=== PATIENT | female | born 1970 ===

== ENCOUNTER 2018-05-02 11:31 | Emergency (ER) | payer SELFPAY ==
--- NOTE | 2018-05-02 11:54 | ED PDOC ---
HPI: Abdomen Time Seen by Provider: 05/02/18 11:43 Chief Complaint (Nursing): Abdominal Pain Onset/Duration Of Symptoms: Days (3) Current Symptoms Are (Timing): Still Present Severity: Moderate Pain Scale Rating Of: 3 Location Of Pain/Discomfort: RLQ, LLQ Quality Of Discomfort: Cramping Associated Symptoms: Urinary Symptoms. denies: Fever, Nausea, Vomiting, Diarrhea Exacerbating Factors: None Alleviating Factors: None Additional Complaint(s): Lower abd pain, crampy x 3 days. Denies NVD. No fever. C/o dysuria. No back pain Abnormal Vaginal Bleeding: No Past Medical History Vital Signs: Last Vital Signs Temp 98.1 F 05/02/18 11:36 Pulse 72 05/02/18 11:36 Resp 16 05/02/18 11:36 BP 106/63 05/02/18 11:36 Pulse Ox 97 05/02/18 11:58 - Medical History PMH: No Chronic Diseases - Family History Family History: States: Unknown Family Hx - Home Medications Home Medications: Ambulatory Orders Medication Instructions Recorded Naproxen [Naprosyn] 500 mg PO Q12H #20 tab 05/02/18 - Allergies Allergies/Adverse Reactions: Allergies Allergy/AdvReac Type Severity Reaction Status Date / Time No Known Allergies Allergy Verified 05/02/18 11:51 Review of Systems Constitutional: Negative for: Fever Gastrointestinal: Positive for: Abdominal Pain. Negative for: Nausea, Vomiting , Diarrhea Genitourinary Female: Positive for: Dysuria Musculoskeletal: Negative for: Back Pain Physical Exam - Physical Exam Appears: Positive for: Non-toxic, No Acute Distress Gastrointestinal/Abdominal: Positive for: Bowel Sounds, Soft, Tenderness (Lower quads bilat) Back: Negative for: L CVA Tenderness, R CVA Tenderness - Laboratory Results Result Diagrams: 05/02/18 12:20 05/02/18 12:20 - ECG O2 Sat by Pulse Oximetry: 97 Disposition - Clinical Impression Clinical Impression: Uterine fibroid - Patient ED Disposition Is Patient to be Admitted: No Counseled Patient/Family Regarding: Studies Performed, Diagnosis, Need For Followup, Rx Given - Disposition Referrals: [facility] [Outside] Disposition: Routine/Home Disposition Time: 15:26 Condition: FAIR Prescriptions: Naproxen [Naprosyn] 500 mg PO Q12H #20 tab Instructions: Uterine Fibroids Forms: Osen (Kyrgyz)
[2018-05-02 12:35] LABS: BASO # 0.1 K/uL (0.0-0.2); BASO % 0.9 % (0.0-2.0); EOS # 0.4 K/uL (0.0-0.7); EOS % 5.5 % (0.0-4.0); HEMOGLOBIN 10.2 g/dL (12.0-16.0); LYMPH # 2.4 K/uL (1.0-4.3); LYMPH % 29.8 % (20.0-40.0); MEAN CORPUSCULAR HEMOGLOBIN 31.4 pg (27.0-31.0); MEAN CORPUSCULAR HGB CONC 33.8 g/dL (33.0-37.0); MEAN PLATELET VOLUME 8.5 fl (7.2-11.7); MONO # 0.6 K/uL (0.0-0.8); MONO % 7.5 % (0.0-10.0); NEUT # 4.5 K/uL (1.8-7.0); NEUT % 56.3 % (50.0-75.0); NRBC % 0.1 % (0.0-0.0); RBC 3.23 Mil/uL (3.80-5.20); RED CELL DISTRIBUTION WIDTH 13.7 % (11.5-14.5)
[2018-05-02 12:37] LABS: ALB/GLOB RATIO 1.3 (1.0-2.1); ALBUMIN 3.8 g/dL (3.5-5.0); ALT/SGPT 33 U/L (9-52); AST/SGOT 25 U/L (14-36); BLOOD UREA NITROGEN 14 mg/dl (7-17); CALCIUM 8.7 mg/dL (8.4-10.2); GFR AFRICAN-AMERICAN > 60; GFR NON-AFRICAN AMERICAN > 60
--- NOTE | 2018-05-02 15:03 | US ---
HISTORY: lower abd pain COMPARISON: None available. TECHNIQUE: Grayscale, spectral and color Doppler evaluation the pelvis performed transabdominally FINDINGS: UTERUS: Measures 12.7 x 3.4 x 4.9 cm. Normal in size and appearance. Left myometrial fibroid measuring 2.0 x 2.0 x 2.4 cm. ENDOMETRIUM: Measures 8 mm in diameter. Unremarkable. CERVIX: Nabothian cysts. No cervical abnormality identified. RIGHT OVARY: Measures 4.1 x 2.5 x 3.5 cm. Dominant follicle measuring 2.2 x 1.3 x 1.6 cm. Normal flow. LEFT OVARY: Measures 2.7 x 2.7 x 2.8 cm. 2.1 x 1.8 x 2.1 cm cyst with thin avascular septation. Normal flow. FREE FLUID: No significant free fluid noted. OTHER FINDINGS: None. IMPRESSION: 2.4 cm uterine fibroid. Small left ovarian cyst with thin septation.
[2018-05-02 15:34] VITALS: BP 101/60; PULSE 78; RESP 20; TEMP 98; O2SAT 98
== END 2018-05-02 15:34 | disposition home or self-care (01) ==
LOC: H.ER 11:31
DX: D25.9 Leiomyoma of uterus, unspecified (principal)

== ENCOUNTER 2019-03-10 17:31 | Emergency (ER) | payer OTHER, SELFPAY ==
[2019-03-10 17:40] VITALS: RESP 18; TEMP 98.7; O2SAT 99
[2019-03-10 17:41] VITALS: BMI 27.6
[2019-03-10] MEDS ORDERED: Sodium Chloride 0.9% 1,000 ML IV STA (18:15)
[2019-03-10] MEDS ORDERED: Morphine 4 MG/ML VIAL IVP STA (18:15)
--- NOTE | 2019-03-10 18:18 | ED PDOC ---
HPI: Female Pain Time Seen by Provider: 03/10/19 17:49 Chief Complaint (Nursing): Abdominal Pain Chief Complaint (Provider): pelvic pain History Per: Patient History/Exam Limitations: no limitations Onset/Duration Of Symptoms: Days (2), Gradual, Persistent Quality Of Discomfort: Sharp Associated Symptoms: Nausea, Other (green vaginal discharge since this morning). denies: Fever, Chills, Vomiting, Constipation, Urinary Symptoms Additional Complaint(s): Was being evaluated at [facility] and during pelvic exam suddenly has severe pain and increased discharge. Sent to ER for further evaluation. Past Medical History Reviewed: Historical Data, Nursing Documentation, Vital Signs Vital Signs: Last Vital Signs Temp 98.7 F 03/10/19 17:39 Pulse 74 03/10/19 17:39 Resp 18 03/10/19 17:39 BP 111/60 03/10/19 17:39 Pulse Ox 99 03/10/19 17:39 - Medical History PMH: No Chronic Diseases - Family History Family History: States: Other Other Family History: Cancer - Social History Current smoker - smoking cessation education provided: Yes - Home Medications Home Medications: Ambulatory Orders Medication Instructions Recorded Naproxen [Naprosyn] 500 mg PO Q12H #20 tab 05/02/18 Doxycycline Monohydrate 100 mg PO BID #28 capsule 03/10/19 Ibuprofen [Motrin Tab] 600 mg PO Q8 PRN #60 tab 03/10/19 Saccharomyces Boulardi [Florastor] 500 mg PO BID #28 cap 03/10/19 metroNIDAZOLE [Flagyl] 500 mg PO BID #28 tab 03/10/19 - Allergies Allergies/Adverse Reactions: Allergies Allergy/AdvReac Type Severity Reaction Status Date / Time No Known Allergies Allergy Verified 03/10/19 17:38 Review of Systems ROS Statement: Except As Marked, All Systems Reviewed And Found Negative (and as per HPI) Gastrointestinal: Positive for: Nausea, Abdominal Pain. Negative for: Vomiting, Diarrhea, Constipation, Melena, Hematochezia, Rectal Pain Genitourinary Female: Positive for: Vaginal Discharge, Pelvic Pain. Negative for: Dysuria, Frequency Physical Exam - Reviewed Nursing Documentation Reviewed: Yes Vital Signs Reviewed: Yes - Physical Exam Appears: Positive for: Non-toxic, In Acute Distress Head Exam: Positive for: ATRAUMATIC, NORMOCEPHALIC Skin: Positive for: Warm, Dry Eye Exam: Positive for: EOMI, PERRL ENT: Negative for: Pharyngeal Erythema, Tonsillar Exudate Neck: Positive for: Painless ROM, Supple Cardiovascular/Chest: Positive for: Regular Rate, Rhythm. Negative for: Murmur Respiratory: Positive for: Normal Breath Sounds. Negative for: Respiratory Distress Gastrointestinal/Abdominal: Positive for: Soft, Tenderness (suprapubic). Negative for: Mass, Distended, Guarding, Rebound Back: Positive for: Normal Inspection. Negative for: Decreased ROM Extremity: Positive for: Normal ROM. Negative for: Deformity Lymphatic: Negative for: Adenopathy Neurological/Psych: Positive for: Awake, Alert. Negative for: Motor/Sensory Deficits - Laboratory Results Result Diagrams: 03/10/19 18:20 03/10/19 18:20 - ECG O2 Sat by Pulse Oximetry: 99 - Progress ED Course And Treament: Name: ANNE MARIE SPAIN Exam Date: Mar 10, 2019 6:42:54 PM EDT Modality Type: SD\US\OT\MN Description: US - PELVIC REAL TIME W/IMAGE DOCUMENTATION LIMITED OR FOLLOW UP Gender: F Laterality: Not applicable : 74 Referring Physician: Isabelle Mensah EXAM: US Pelvis, Complete Transvaginal and Transabdominal COMPARISON: None provided. CLINICAL HISTORY: Pain TECHNIQUE: Transvaginal and transabdominal pelvic ultrasound (complete) with image documentation. FINDINGS: ENDOMETRIUM: Normal thickness. UTERUS/CERVIX: There is a left fundal fibroid measuring 2.5 x 1.7 x 2 cm. Nabothian cyst yi sures 1.2 x 0.9 cm. RIGHT OVARY: Normal Doppler flow. No abnormal mass. LEFT OVARY: Normal Doppler flow. Left paraovarian cyst measuring 2.9 x 1.4 x 2.5 cm. There are multiple loops of bowel within the pelvic area. FREE FLUID: No free fluid. IMPRESSION: There is a small fibroid within the uterus measuring 2.5 x 1.7 x 2 cm. Nabothian cyst within the cervix. Left paraovarian cyst measuring 2.9 x 1.4 x 2.5 cm. Multiple loops of bowel within the pelvis noted. Clinical correlation advised. Electronically signed on Mar 10, 2019 7:25:34 PM EDT by: Raheem Trivedi M.D., Certified by [facility], Diagnostic Radiology Labs with no emergently significant abnormalities. Pelvic pain with discharge and otherwise no findings of sepsis. Outpatient management appropriate. Re-evaluation Time: 20:00 Condition: Improved Disposition - Clinical Impression Clinical Impression: Pelvic inflammatory disease, Ovarian cyst, Uterine fibroid Counseled Patient/Family Regarding: Studies Performed, Diagnosis, Need For Followup, Rx Given - Disposition Disposition: Routine/Home Disposition Time: 20:00 Condition: STABLE Additional Instructions: VISITA BENAVIDES GYNECOLOGO PROXIMA SEMANA A CHEQAR DE NUEVO REGRESA SI [place] Prescriptions: Doxycycline Monohydrate 100 mg PO BID #28 capsule Ibuprofen [Motrin Tab] 600 mg PO Q8 PRN #60 tab PRN Reason: Pain, Moderate (4-7) metroNIDAZOLE [Flagyl] 500 mg PO BID #28 tab Saccharomyces Boulardi [Florastor] 500 mg PO BID #28 cap Instructions: Pelvic Inflammatory Disease (DC), Ovarian Cyst (DC), Uterine Fibroids (DC) Print Language: AUSTRALIAN
[2019-03-10] MEDS ORDERED: Morphine 4 MG/ML VIAL ONE (18:30)
[2019-03-10 18:51] LABS: BASO # 0.1 K/uL (0.0-0.2); BASO % 0.8 % (0.0-2.0); EOS # 0.2 K/uL (0.0-0.7); EOS % 2.5 % (0.0-4.0); HEMOGLOBIN 10.9 g/dL (12.0-16.0); LYMPH # 1.6 K/uL (1.0-4.3); MEAN CELL VOLUME 85.1 fl (81.0-99.0); MEAN CORPUSCULAR HEMOGLOBIN 27.2 pg (27.0-31.0); MEAN PLATELET VOLUME 8.7 fl (7.2-11.7); MONO # 0.5 K/uL (0.0-0.8); MONO % 5.5 % (0.0-10.0); NEUT % 74.2 % (50.0-75.0); NRBC % 0.1 % (0.0-0.0); RBC 3.99 Mil/uL (3.80-5.20); RED CELL DISTRIBUTION WIDTH 15.1 % (11.5-14.5); WHITE BLOOD COUNT 9.5 K/uL (4.8-10.8)
[2019-03-10 19:03] LABS: ALB/GLOB RATIO 1.4 (1.0-2.1); ALBUMIN 4.2 g/dL (3.5-5.0); ALT/SGPT 22 U/L (9-52); AST/SGOT 22 U/L (14-36); BLOOD UREA NITROGEN 12 mg/dl (7-17); CALCIUM 8.9 mg/dL (8.4-10.2); GFR NON-AFRICAN AMERICAN > 60
[2019-03-10 20:25] LABS: SQUAMOUS EPITHIAL < 1 /hpf (0-5); URINE BACTERIA FEW (<OCC); URINE BILIRUBIN NEGATIVE (NEGATIVE); URINE BLOOD NEGATIVE (NEGATIVE); URINE CLARITY CLEAR (Clear); URINE COLOR YELLOW (YELLOW); URINE GLUCOSE (UA) NEG (NEGATIVE); URINE LEUKOCYTE ESTERASE SMALL Leu/uL (Negative); URINE PROTEIN NEGATIVE (NEGATIVE); URINE UROBILINOGEN 0.2-1.0 mg/dL (0.2-1.0)
[2019-03-10] MEDS ORDERED: cefTRIAXone (Rocephin) 250 mg Inj IM STA (20:52)
[2019-03-10] MEDS ORDERED: cefTRIAXone (Rocephin) 250 mg Inj ONE (21:17)
[2019-03-10] MEDS ORDERED: Sterile Water 10 ML IV ONE (21:17)
[2019-03-11 03:57] VITALS: BP 114/68; PULSE 88
--- NOTE | 2019-03-11 10:19 | US ---
Date of service: 03/10/2019 HISTORY: severe pelvic pain vag dc r/o TOA COMPARISON: 05/02/2018. TECHNIQUE: Transabdominal pelvic ultrasound was performed. FINDINGS: UTERUS: Measures 10.8 x 6.9 x 5.8 cm. Anteverted and enlarged. There is a 2.5 x 1.7 x 2.0 cm intramural posterior wall fibroid in the midbody of the uterus to the left. ENDOMETRIUM: Measures 6.0 mm in diameter. Unremarkable. CERVIX: There is a 0.9 x 0.9 x 1.2 cm nabothian cyst in the cervix. RIGHT OVARY: Measures 2.9 x 2.6 x 2.6 cm. No solid mass. Normal flow. LEFT OVARY: Measures 2.8 x 1.5 x 2.7 cm. No solid mass. Normal flow. There is a 2.9 x 1.4 x 2.5 cm complicated septated cyst in the left ovary. FREE FLUID: No significant free fluid noted. OTHER FINDINGS: None. IMPRESSION: 1. 2.5 x 1.7 x 2.0 cm intramural posterior fibroid in the midbody of the uterus to the left. 2. 2.9 x 1.4 x 2.5 cm complicated/septated cyst in the left ovary. A preliminary report was provided by [facility].
== END 2019-03-10 21:40 | disposition home or self-care (01) ==
LOC: H.ER 17:31
DX: N73.9 Female pelvic inflammatory disease, unspecified (principal); D25.9 Leiomyoma of uterus, unspecified; N83.202 Unspecified ovarian cyst, left side
CPT/HCPCS: 76856; 80053; 81003; 81025; 83605; 85025; 87040; 87491; 87591; 96372; 96374; 99284; J0696; J1885; J2270; J7030